=== PATIENT | female | born 1950 | race Asian ===

== ENCOUNTER → 2023-05-09 14:53 | Outpatient (REF) | payer MEDICARE, SELFPAY | LOC: RAD 14:53 | PROVIDERS: ATTENDING PHYSICIAN Surgery Vascular Surgery; FAMILY PHYSICIAN Family Medicine | DX: I72.2 Aneurysm of renal artery (principal) | CPT/HCPCS: 71275; 74174; Q9967 ==

== ENCOUNTER → 2023-08-23 15:53 | Outpatient (REF) | payer MEDICARE, SELFPAY | LOC: RAD 15:53 | PROVIDERS: ATTENDING PHYSICIAN Family Medicine | DX: K82.4 Cholesterolosis of gallbladder (principal) | CPT/HCPCS: 76700 ==

== ENCOUNTER → 2023-10-07 14:14 | Outpatient (REF) | payer MEDICARE, SELFPAY | LOC: WDC 14:14 | PROVIDERS: ATTENDING PHYSICIAN Family Medicine | DX: Z12.31 Encounter for screening mammogram for malignant neoplasm of breast (principal) | CPT/HCPCS: 77063; 77067 ==

== ENCOUNTER 2023-10-22 06:10 | Day surgery (SDC) | payer MEDICARE, SELFPAY ==
[2023-10-07 14:00] VITALS: BMI 20.6
[2023-10-22] VITALS (9 sets, daily range): BP systolic 143–171; BP diastolic 77–95; BMI 20.6
[2023-10-22] MEDS: TYLENOL 1000 MG PO (08:36)
[2023-10-22] MEDS: NORMOSOL-R/PLASMALYTE-A 1000 IV (08:36)
--- NOTE | 2023-10-22 08:47 | W.SUR.PREOP ---
Pre-Operative Surgical Note
-
I have examined this patient prior to the performance of the scheduled procedure.
The patient's condition is unchanged from the time of the current History and
Physical and the patient is able to undergo the scheduled procedure.
--- NOTE | 2023-10-22 10:36 | W.IMMPOSTOP ---
Surgical Immed Post Op Note
-
Primary Surgeon: Aramis Joya MD
Assisting Surgeon: None
Pre-op Diagnosis: Gallbladder polyp
Post-op Diagnosis: Chronic cholecystitis, cholelithiasis
Procedure Performed: Laparoscopic cholecystectomy
Anesthesia Type: General
Specimen / Cultures: Gallbladder and contents
Estimated Blood Loss: 11 cc
Complications: None
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 Some periduodenal fat was adherent to the infundibulum and anterior surface of the gallbladder consistent with chronic
cholecystitis, this was taken down with electrocautery and sharp dissection. The critical view of safety was obtained prior to ligation of the cystic artery and cystic duct. A small ductotomy was made to ensure there was clear expression of bile
and no stones. The duct was then ligated with 5 mm titanium clip followed by 0 PDS Endoloop. The gallbladder was opened on the back table and did not reveal any overt polyps but multiple small yellow cholesterol gallstones.
--- NOTE | 2023-10-22 10:38 | OR.RPT ---
Operative Report
Operative Report
Patient Name: Jorden Mauricio
: 1950
Date of Operation: 10/22/2023
Preoperative Diagnosis: Gallbladder polyp
Postoperative Diagnosis: Chronic cholecystitis, cholelithiasis
Procedure(s):
Laparoscopic Cholecystectomy with Cholangiogram
Surgeon(s):
Dr. Joya
Manager Aviation(s):
ARMOND Duran
Anesthesia: General
Estimated Blood Loss: 11 cc
Urine Output: None
Drains/Lines/Implants: None
Specimens:
1. Gallbladder and contents
HPI/Surgical Indications:
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 They seemed to have grown in size up to 10 mm and though asymptomatic and
given the increased risk for gallbladder cancer she elected to move forward with cholecystectomy. Risks/Benefits/Alternatives were discussed at length, and the patient agreed to proceed with surgery.
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 Some periduodenal fat was adherent to the infundibulum and anterior surface of the gallbladder consistent with chronic
cholecystitis, this was taken down with electrocautery and sharp dissection. The critical view of safety was obtained prior to ligation of the cystic artery and cystic duct. A small ductotomy was made to ensure there was clear expression of bile
and no stones. The duct was then ligated with 5 mm titanium clip followed by 0 PDS Endoloop. The gallbladder was opened on the back table and did not reveal any overt polyps but multiple small yellow cholesterol gallstones.
Procedure Description:
The patient was brought to the Operating Room and placed in the supine position. IV antibiotics were infused and sequential compression devices were confirmed to be on. Following uneventful induction of general endotracheal anesthesia, an
orogastric tube was placed. The abdomen was prepped and draped in the usual sterile fashion. The abdomen was entered using an Infraumbilical open Tai technique with a 12 mm balloon trocar. Pneumoperitoneum to 15 mmHg pressure was obtained
without difficulty and we confirmed that no injury had occurred during our entry. The patient was positioned in reverse trendelenberg and rotated with the right side up slightly. Three (3) 5mm trocars were then placed along the right subcostal
margin. 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 These were lysed with electrocautery, and blunt dissection. There was also some periduodenal fat adherent
to the anterior surface of the gallbladder which was also lysed with electrocautery and blunt dissection. A locking grasping forceps was placed on the fundus of the gallbladder where it was then retracted cephalad and to the right. Using
appropriate grasping instruments, the peritoneum overlying the triangle of Calot was incised. The cystic duct/gallbladder junction was identified, dissected circumferentially. The cystic artery was identified medially and was dissected
circumferentially. A critical view was obtained. The cystic artery was doubly ligated and divided. A clip was then placed on the cystic duct/gallbladder junction and a ductotomy was performed with free flow of bile. There was no debris or stones
noted so we clipped the proximal and and divided the duct. The duct stump was then reinforced with a 0 PDS Endoloop. The gallbladder was then removed off of the liver. There was a more robust posterior cystic artery which did bleed briefly but
was controlled with 2 clips. There was no spillage of bile.. The gallbladder bed was inspected and excellent hemostasis was obtained. The gallbladder was extracted through the 12 mm trocar site using an endocatch bag. The abdomen was again
irrigated and excellent hemostasis was assured. All remaining trocars were then removed and the pneumoperitoneum was evacuated. The 12 mm trocar site was closed using a figure of 8 of 0 PDS. All trocar sites were closed at the skin level using
4-0 Monocryl followed by Dermabond. The gallbladder was then opened up on the back table which revealed no gross polyps but multiple small yellow cholesterol gallstones. Overall, the patient tolerated the procedure well and was taken to the
Recovery Room postoperatively in stable condition.
I was the attending physician and performed the procedure with assistance from the DIRECTOR OF CAREER SERVICES above. I was present for all portions of the case, excluding skin closure
Aramis Joya MD
[2023-10-22] MEDS: DILAUDID 0.5 MG IV (10:54)
== END 2023-10-22 12:35 | disposition home or self-care (01) ==
LOC: SDS 06:10
PROVIDERS: ATTENDING PHYSICIAN Surgery; FAMILY PHYSICIAN Family Medicine
DX: K80.10 Calculus of gallbladder with chronic cholecystitis without obstruction (principal)
CPT/HCPCS: 47563; 88304; 36415; 93005

== ENCOUNTER → 2024-03-24 14:32 | Outpatient (REF) | payer MEDICARE, SELFPAY | LOC: RAD 14:32 | PROVIDERS: ATTENDING PHYSICIAN Internal Medicine Rheumatology; FAMILY PHYSICIAN Internal Medicine | DX: M17.12 Unilateral primary osteoarthritis, left knee (principal); M19.041 Primary osteoarthritis, right hand; M19.042 Primary osteoarthritis, left hand; M54.50 Low back pain, unspecified; M81.0 Age-related osteoporosis without current pathological fracture | CPT/HCPCS: 77080 ==

== ENCOUNTER → 2024-09-17 13:38 | Outpatient (REF) | payer MEDICARE, SELFPAY | LOC: RAD 13:38 | PROVIDERS: ATTENDING PHYSICIAN Internal Medicine Rheumatology | DX: E55.9 Vitamin D deficiency, unspecified (principal); G89.29 Other chronic pain; M17.12 Unilateral primary osteoarthritis, left knee; M19.041 Primary osteoarthritis, right hand; M19.042 Primary osteoarthritis, left hand; M25.511 Pain in right shoulder; M54.50 Low back pain, unspecified; M81.0 Age-related osteoporosis without current pathological fracture | CPT/HCPCS: 73030 ==

== ENCOUNTER → 2024-10-09 14:54 | Outpatient (REF) | payer MEDICARE, SELFPAY | LOC: WDC 14:54 | PROVIDERS: ATTENDING PHYSICIAN Internal Medicine | DX: Z12.31 Encounter for screening mammogram for malignant neoplasm of breast (principal); E78.5 Hyperlipidemia, unspecified | CPT/HCPCS: 77063; 77067 ==

== ENCOUNTER → 2024-10-09 15:29 | Outpatient (REF) | payer SELFPAY | LOC: RAD 15:29 | PROVIDERS: ATTENDING PHYSICIAN Internal Medicine | DX: E78.5 Hyperlipidemia, unspecified (principal) | CPT/HCPCS: 75571 ==

== ENCOUNTER → 2025-02-05 16:15 | Outpatient (REF) | payer MEDICARE, SELFPAY ==
[2025-02-05 17:14] LABS: Hematocrit 42.1 % (37.0-47.0); Hemoglobin 15.1 g/dL (12.0-16.0); Mean Corp Hgb Conc. 35.9 g/dL (33.0-37.0); Mean Corpuscular Volume 80.7 fL (81.0-99.0); Nucleated Red Blood Cells % 0 %; Platelet Count 260 10^3/uL (130-400); Red Cell Dist. Width 11.7 % (11.5-14.5)
[2025-02-05 17:30] LABS: ALT (SGPT) 29 U/L (0-35); AST (SGOT) 23 U/L (14-36); Albumin 4.1 g/dl (3.5-5.0); Alkaline Phosphatase 61 U/L (38-126); Blood Urea Nitrogen 21 mg/dl (7-17); Calcium 9.2 mg/dl (8.4-10.2); Carbon Dioxide 23 mmol/L (22-30); Chloride 105 mmol/L (98-107); Glucose 105 mg/dl (70-99); Potassium 4.3 mmol/L (3.5-5.1); Sodium 137 mmol/L (135-145); Total Protein 7.0 g/dl (6.3-8.2); eGFR 59.86
[2025-02-05 17:32] LABS: Urine Character Clear (Clear)
== END ==
LOC: REG 16:15
PROVIDERS: ATTENDING PHYSICIAN Nurse Practitioner Family; FAMILY PHYSICIAN Internal Medicine
DX: R11.0 Nausea (principal); R10.84 Generalized abdominal pain; K59.00 Constipation, unspecified
CPT/HCPCS: 36415; 74018; 80053; 81003; 84443; 85025